=== PATIENT | female | born 1990 | race Caucasian/White ===

== ENCOUNTER 2017-12-17 21:23 | Inpatient (IN) | payer MEDICAID ==
[~2017-12-17] VITALS: Ht 170.2 cm; Wt 74.0 kg
[2017-12-17] MEDS ORDERED: OXYTOCIN 30U/ 0.9% NaCL 500ML 500 ML IV ONE (22:05)
[2017-12-17] MEDS ORDERED: D5%-LACTATED RINGERS 1,000 ML IV SCH (22:05)
[2017-12-17] MEDS: LACTATED RINGERS 1,000 ML IV SCH (22:23)
[2017-12-17] MEDS ORDERED: CALCIUM CARBONATE 500 MG TAB.CHEW PO PRN (22:30)
[2017-12-17] MEDS ORDERED: ONDANSETRON 2MG/ML, 2ML IVPush PRN (22:30)
[2017-12-17] MEDS ORDERED: TERBUTALINE 1 MG/ML, 1ML IVPush PRN (22:30)
[2017-12-17] MEDS ORDERED: FENTANYL PF 100 MCG/2ML IV PRN (22:30)
[2017-12-17] MEDS ORDERED: FENTANYL PF 100 MCG/2ML IVPush PRN (22:30)
[2017-12-17] MEDS ORDERED: NEWBORN KIT ONE (22:33)
[2017-12-17 22:34] LABS: BASOPHILS # (AUTO) 0.03 x10^3/uL (0-0.1); BASOPHILS % (AUTO) 0 % (0-1); EOSINOPHILS # (AUTO) 0.06 x10^3/uL (0-0.4); EOSINOPHILS % (AUTO) 0 % (1-7); LYMPHOCYTES # (AUTO) 2.37 x10^3/uL (1-3.4); LYMPHOCYTES % (AUTO) 16 % (22-44); MD NO; MEAN CORPUSCULAR HEMOGLOBIN 31.4 pg (27.0-34.8); MEAN CORPUSCULAR HGB CONC 34.6 g/dL (32.4-35.8); MEAN CORPUSCULAR VOLUME 90.8 fL (80-100); MEAN PLATELET VOLUME 9.6 fL (7.4-10.4); MONOCYTES # (AUTO) 0.76 x10^3/uL (0.2-0.8); MONOCYTES % (AUTO) 5 % (2-9); NEUTROPHILS # (AUTO) 11.26 x10^3/uL (1.8-6.8); NEUTROPHILS % (AUTO) 78 % (42-75); PLATELET COUNT 183 x10^3/uL (130-400); RED BLOOD COUNT 4.07 x10^6/uL (3.82-5.3); RED CELL DISTRIBUTION WIDTH 13.3 % (9.6-15.2)
[2017-12-17] MEDS ORDERED: ONDANSETRON 2MG/ML, 2ML ONE (22:34)
[2017-12-17] MEDS ORDERED: OXYTOCIN 30U/ 0.9% NaCL 500ML 500 ML ONE (22:34)
[2017-12-17] MEDS ORDERED: FENTANYL PF 100 MCG/2ML ONE (22:34)
[2017-12-17 23:25] LABS: MICROSCOPIC INDICATED
[2017-12-17 23:28] LABS: AMPHETAMINE SCREEN, URINE Negative (Negative); BARBITURATE SCREEN, URINE Negative (Negative); BENZODIAZEPINE SCREEN, URINE Negative (Negative); CANNABINOID SCREEN, URINE Positive (Negative); COCAINE SCREEN, URINE Negative (Negative); METHADONE SCREEN, URINE Negative (Negative); OPIATE SCREEN, URINE Negative (Negative)
[2017-12-17] MEDS ORDERED: FENTANYL/BUPIV./NS/PF 250 ML EPIDCONT SCH (23:32)
[2017-12-18] MEDS ORDERED: BUPIVACAINE 0.25% ONE (00:05)
[2017-12-18] MEDS ORDERED: FENTANYL PF 100 MCG/2ML ONE (00:05)
[2017-12-18] MEDS ORDERED: FENTANYL/BUPIV./NS/PF 250 ML EPIDCONT SCH (00:33)
[2017-12-18] MEDS ORDERED: LACTATED RINGERS 1,000 ML IV SCH (00:33)
[2017-12-18] MEDS ORDERED: ONDANSETRON 2MG/ML, 2ML IVPush PRN (01:00)
[2017-12-18] MEDS ORDERED: LACTATED RINGERS 1,000 ML IVBOLUS PRN (01:00)
[2017-12-18] MEDS ORDERED: EPHEDRINE 50 MG/ML, 1ML IVPush PRN (01:00)
[2017-12-18] MEDS ORDERED: OXYTOCIN 30U/ 0.9% NaCL 500ML 500 ML IV PRN (04:29)
[2017-12-18] MEDS: LACTATED RINGERS 1,000 ML IV SCH (05:30)
[2017-12-18] MEDS ORDERED: OXYTOCIN 30U/ 0.9% NaCL 500ML 500 ML IV SCH ×2 (09:25)
[2017-12-18] MEDS ORDERED: ONDANSETRON 2MG/ML, 2ML IV PRN (09:30)
[2017-12-18] MEDS ORDERED: RHOGAM FROM BLOOD BANK 1 NOTE EA IM/IV ONE (09:30)
[2017-12-18] MEDS ORDERED: MAGNESIUM HYDROXIDE 8%, 30ML UDC PO PRN (09:30)
[2017-12-18] MEDS ORDERED: ACETAMINOPHEN 325 MG TABLET PO PRN (09:30)
[2017-12-18] MEDS ORDERED: METHYLERGONOVINE 0.2 MG/ML IM PRN (09:30)
[2017-12-18] MEDS ORDERED: OXYTOCIN 10 UNITS/ML, 1ML IM PRN (09:30)
[2017-12-18] MEDS ORDERED: OXYcodone IR 5MG TABLET PO PRN (09:30)
[2017-12-18] MEDS ORDERED: OXYcodone/APAP 5/325MG TABLET PO PRN (09:30)
[2017-12-18] MEDS ORDERED: OXYTOCIN 30U/ 0.9% NaCL 500ML 500 ML ONE (12:29)
[2017-12-18 13:33] VITALS: BP 128/76
[2017-12-18] MEDS ORDERED: CALCIUM CARBONATE 500 MG TAB.CHEW ONE ×2 (13:58→15:17)
[2017-12-18] MEDS: PRENATAL VIT/IRON/FA 1 EACH TABLET PO SCH (15:30)
[2017-12-18] MEDS: DOCUSATE 100 MG CAPSULE PO PRN ×2 (15:30→21:58)
[2017-12-18] MEDS: IBUPROFEN 800 MG TABLET PO PRN (15:30)
[2017-12-18 16:00] VITALS: BP 118/72
[2017-12-18 17:15] LABS: MEAN CORPUSCULAR HEMOGLOBIN 31.8 pg (27.0-34.8); MEAN CORPUSCULAR HGB CONC 34.2 g/dL (32.4-35.8); MEAN CORPUSCULAR VOLUME 92.9 fL (80-100); MEAN PLATELET VOLUME 9.9 fL (7.4-10.4); PLATELET COUNT 150 x10^3/uL (130-400); RED BLOOD COUNT 3.86 x10^6/uL (3.82-5.3); RED CELL DISTRIBUTION WIDTH 13.1 % (9.6-15.2)
[2017-12-18 17:32] LABS: BASOPHILS # (AUTO) 0.06 x10^3/uL (0-0.1); BASOPHILS % (AUTO) 0 % (0-1); EOSINOPHILS # (AUTO) 0.02 x10^3/uL (0-0.4); EOSINOPHILS % (AUTO) 0 % (1-7); LYMPHOCYTES # (AUTO) 1.78 x10^3/uL (1-3.4); LYMPHOCYTES % (AUTO) 9 % (22-44); MD MORPH REVIEW ONLY; MONOCYTES # (AUTO) 1.25 x10^3/uL (0.2-0.8); MONOCYTES % (AUTO) 7 % (2-9); NEUTROPHILS # (AUTO) 15.76 x10^3/uL (1.8-6.8); NEUTROPHILS % (AUTO) 84 % (42-75)
[2017-12-18 17:33] LABS: <PLATELET ESTIMATE> ADEQUATE; <PLT MORPHOLOGY> NORMAL PLT MORPH; <RBC MORPHOLOGY> NORMAL; TOXIC GRAN 1+
[2017-12-18] MEDS ORDERED: CALCIUM CARBONATE 500 MG TAB.CHEW PO PRN (19:00)
[2017-12-18 19:15] VITALS: BP 115/72
[2017-12-18 23:42] VITALS: BP 114/69
[2017-12-19 03:50] VITALS: BP 116/79
[2017-12-19] MEDS: IBUPROFEN 800 MG TABLET PO PRN ×2 (05:37→13:52)
[2017-12-19 09:00] VITALS: BP 121/79
[2017-12-19] MEDS: PRENATAL VIT/IRON/FA 1 EACH TABLET PO SCH (09:32)
[2017-12-19] MEDS: DOCUSATE 100 MG CAPSULE PO PRN (09:33)
[2017-12-19 19:35] VITALS: BP 106/72
[2017-12-20] MEDS: IBUPROFEN 800 MG TABLET PO PRN (01:39)
[2017-12-20 07:10] VITALS: BP 117/85
[2017-12-20] MEDS: DOCUSATE 100 MG CAPSULE PO PRN (08:06)
[2017-12-20] MEDS: PRENATAL VIT/IRON/FA 1 EACH TABLET PO SCH (08:06)
[2017-12-20] MEDS ORDERED: OXYC-302 PO (08:59)
[2017-12-20] MEDS ORDERED: IBUP-1222 PO (09:00)
== END 2017-12-20 15:05 | disposition home or self-care (01) | DRG 775 ==
LOC: LDOP 21:23 → LDIP 22:10 → 2NW 12-18 13:36
PROVIDERS: ADMIT Obstetrics & Gynecology; ATTEND Obstetrics & Gynecology
PROC: 10E0XZZ Delivery of Products of Conception, External Approach (ICD-10-PCS; principal; 2017-12-18)
PROC: 3E0R3BZ Introduction of Anesthetic Agent into Spinal Canal, Percutaneous Approach (ICD-10-PCS; 2017-12-18)
PROC: 00HU33Z Insertion of Infusion Device into Spinal Canal, Percutaneous Approach (ICD-10-PCS; 2017-12-18)
PROC: 10907ZC Drainage of Amniotic Fluid, Therapeutic from Products of Conception, Via Natural or Artificial Opening (ICD-10-PCS; 2017-12-18)
PROC: 30233S1 Transfusion of Nonautologous Globulin into Peripheral Vein, Percutaneous Approach (ICD-10-PCS; 2017-12-18)
PROC: 0UQGXZZ Repair Vagina, External Approach (ICD-10-PCS; 2017-12-18)
DX: O71.4 Obstetric high vaginal laceration alone (principal); Z37.0 Single live birth; Z3A.38 38 weeks gestation of pregnancy
CPT/HCPCS: 36415; J2790; 80307; 81001; 85025; 85461; 86850; 86870; 86900; 86922; 86923; 87086; J2405; J3010; J3490; J2590; J7120